=== PATIENT | male | born 1970 | race American Indian/Alaskan Native ===

== ENCOUNTER 2018-03-27 10:01 | Outpatient (CLI) | payer OTHER ==
[2018-03-27 10:53] LABS: Blood Urea Nitrogen 14 mg/dL (9-20)
--- NOTE | 2018-03-27 16:10 | Cat Scan Report ---
FINAL REPORT EXAM: CT CHEST W CON HISTORY: PULMONARY NODULES TECHNIQUE: CT examination of the chest after IV contrast PRIORS: None. FINDINGS: Normal cardiac size without pericardial effusion. Intact normal caliber thoracic aorta. Normal-appearing esophagus. No acute fracture or evidence of significant osseous lesion. Nonspecific abnormal adenopathy throughout the middle mediastinum noted in the pretracheal, subcarinal, and AP window regions. There is also bilateral hilar adenopathy. Smoothly marginated hypodense right hepatic lobe lesions are nonspecific and statistically most likely reflect cysts and/or hemangiomas. No pneumothorax or pleural effusion. Abnormal patchy and interstitial nonspecific opacity is noted in the right upper lobe, right middle lobe, central medial right lower lobe, left upper lobe superiorly, and left lower lobe anteriorly. Associated slight parenchymal consolidation in the right middle lobe and left lower lobe. IMPRESSION: Multifocal abnormal pulmonary parenchymal opacities are primarily interstitial and patchy. These may represent areas of edema, inflammation, and/or infection. Differential includes neoplasm in the region of greatest consolidation. Mediastinal and bilateral hilar adenopathy may be reactive and/or neoplastic 2 right liver lesions statistically most likely representing cysts and/or hemangiomas.
== END 2018-03-27 10:02 | disposition home or self-care (01) ==
LOC: CT 10:01
PROVIDERS: ATTEND Internal Medicine Critical Care Medicine
DX: J84.9 Interstitial pulmonary disease, unspecified (principal); R59.9 Enlarged lymph nodes, unspecified
CPT/HCPCS: 36415; 71260; 82565; 84520; Q9967